=== PATIENT | female | born 1980 | race Caucasian/White ===

== ENCOUNTER 2021-08-21 13:34 | Outpatient (CLI) | payer BC, SELFPAY ==
--- NOTE | 2021-08-21 13:59 | MR_ITS ---
WS: [email or web address] MRI LUMBAR SPINE NONCONTRAST TECHNIQUE: Sagittal T1, T2 and STIR imaging. Axial T1 and T2 imaging. CLINICAL INFORMATION: SCIATICA, RIGHT COMPARISON: None. FINDINGS: Mild lumbar curve. No acute compression. No high-grade central canal stenosis. Endplate degenerative changes L4-5 with mild disc space narrowing L1-L2: No significant disc bulging. Mild facet arthropathy. Spinal canal and foramen are patent. L2-L3: Minimal annular bulging. Mild facet arthropathy. Spinal canal and foramen are patent. L3-L4: No significant disc bulging. Moderate facet arthropathy. Tiny left foraminal protrusion with m ild left foraminal narrowing. Right foramen is patent. L4-L5: Shallow central disc bulging with slight impingement traversing L5 nerve roots bilaterally. Mi ld central canal stenosis. Moderate facet arthropathy. Small right foraminal protrusion with moderate right and no significant left foraminal narrowing. L5-S1: No significant disc bulging. Spinal canal and foramen are patent. Mild facet arthropathy. Tiny right renal cyst. Visualized pelvic bony structures: Normal. Paravertebral soft tissues: Normal. Small central protrusion thoracic spine at T8-T9. MR/MR lumbar spine wo con* [id number] IMPRESSION: 1. Mild lumbar curve. No acute compression. Disc bulging worse L4-5 with endpl ate degenerative edema. 2. Broad-based shallow disc bulging L4-5 impinges the traversing L5 nerve root s bilaterally. Mild central canal stenosis at this level. 3. Right foraminal protrusion L4-5 with moderate right foraminal narrowing and slight impingement on the exiting right L4 nerve root. 4. Small left foraminal protrusion L3-4 with mild left foraminal narrowing. 5. Mild to moderate facet arthropathy worse at L3-L4 and L4-L5.
== END 2021-08-21 13:35 | disposition home or self-care (01) ==
PROVIDERS: PCP Family Medicine; Visit Provider Family Medicine
DX: M54.31 Sciatica, right side (principal); M47.816 Spondylosis without myelopathy or radiculopathy, lumbar region; M51.26 Other intervertebral disc displacement, lumbar region
CPT/HCPCS: 72148

== ENCOUNTER 2022-04-16 14:40 | Outpatient (CLI) | payer BC, SELFPAY ==
--- NOTE | 2022-04-16 15:01 | XR_ITS ---
WS: [email or web address] XR knee LT 1-2V [id number] REASON FOR EXAM: BILATERAL KNEE OSTEOARTHRITIS FINDINGS: Medial and lateral knee joint spaces are relatively well-preserved. No significant subchondral bony a bnormality. Mild narrowing of the patellofemoral joint space with subchondral sclerosis and small osteophytic spu rring of the articular patella. No soft tissue abnormality. XR/XR knee LT 1-2V [id number] IMPRESSION: Mild osteoarthritis of the patellofemoral joint.
--- NOTE | 2022-04-16 15:01 | XR_ITS ---
WS: [email or web address] XR knee RT 1-2V [id number] REASON FOR EXAM: BILATERAL KNEES OSTEOARTHRITIS FINDINGS: No fracture or focal bone lesion. Medial and lateral knee joint spaces are relatively well-preserved. No significant subchondral bone a bnormality. There is mild narrowing of the patellofemoral joint space with mild subchondral sclerosis and small o steophytes of the articular patella. No soft tissue abnormality. XR/XR knee RT 1-2V [id number] IMPRESSION: Mild osteoarthritis involving the patellofemoral joint space.
== END 2022-04-16 14:41 | disposition home or self-care (01) ==
PROVIDERS: PCP Family Medicine; Visit Provider Family Medicine
DX: M17.2 Bilateral post-traumatic osteoarthritis of knee (principal)
CPT/HCPCS: 73560

== ENCOUNTER 2022-09-03 14:23 | Outpatient (CLI) | payer BC, SELFPAY ==
--- NOTE | 2022-09-03 14:30 | MR_ITS ---
WS: [email or web address] MRI LUMBAR SPINE NONCONTRAST TECHNIQUE: Sagittal T1, T2 and STIR imaging. Axial T1 and T2 imaging. CLINICAL INFORMATION: worsening sciatica COMPARISON: MRI August 21, 2021 FINDINGS: Mild lumbar curve. No acute compression. No high-grade central canal stenosis. Disc bulging worse L4- L5 with degenerative endplate edema. This is similar in appearance to August 21, 2021. Small disc p rotrusions in the cervical spine supervisor instrument maintenance imaging at C3-C4 and C4-C5. Indentation on cervical cord at C4 -C5 with mild to moderate central canal stenosis. Prior cervical spine fusion lower cervical spine. T iny central protrusion of the thoracic spine supervisor instrument maintenance imaging at T7-T8. L1-L2: Mild annular bulging. Mild facet arthropathy. Spinal canal and foramen are patent. L2-L3: No significant disc bulging. Mild facet arthropathy. Spinal canal and foramen are patent. L3-L4: No significant disc bulging. Mild facet arthropathy. Tiny shallow LEFT foraminal protrusion. L4-L5: Shallow central disc protrusion. Slight impingement traversing L5 nerve roots bilaterally. Thi s is slightly worse in the LEFT. Mild facet arthropathy. Small RIGHT foraminal protrusion with mild R IGHT and mild LEFT foraminal narrowing. L5-S1: No significant disc bulging. Mild facet arthropathy. Spinal canal and foramen are patent. Nabothian cyst in the cervix. Visualized pelvic bony structures: Normal. Paravertebral soft tissues: Normal. MR/MR lumbar spine wo con* [id number] IMPRESSION: 1. Mild lumbar curve. No acute compression. No high-grade central canal stenos is. 2. Broad-based central disc protrusion L4-L5 with slight impingement traversin g L5 nerve roots bilaterally LEFT greater than RIGHT. This is stable compared t o August 21, 2021. 3. Small RIGHT foraminal protrusion L4-L5 with mild RIGHT foraminal narrowing. Mild LEFT L4-L5 foraminal narrowing. 4. Mild facet arthropathy L3-L4 and L4-L5. 5. Tiny shallow LEFT foraminal protrusion with mild LEFT L3-L4 foraminal narro wing unchanged. 6. Small central protrusions cervical spine supervisor instrument maintenance imaging at C3-C4 and C4-C5 w ith mild to moderate central canal stenosis at C4-C5. This can be further evalu ated with cervical spine MRI. 7. Overall no significant changes compared to previous.
--- NOTE | 2022-09-03 15:15 | MR_ITS ---
WS: [email or web address] MRI CERVICAL SPINE NONCONTRAST TECHNIQUE: Sagittal T1, T2 and STIR imaging. Axial T2, gradient, and fiesta imaging. CLINICAL INFORMATION: worsening neck pain COMPARISON: MRI 2017 FINDINGS: Straightening of the normal cervical lordosis. Prior postoperative changes ACDF C5-C7. Disc bulging w orse at C3-C4 and C4-C5. C2-C3: Normal C3-C4: Mild disc bulging with slight effacement of ventral thecal sac. Mild central canal stenosis. M ild RIGHT and no LEFT foraminal narrowing. Mild facet arthropathy. C4-C5: Disc osteophyte complex with endplate ridging. Moderate central canal stenosis. Slight indenta tion on cervical cord with myelomalacia in the cervical cord. Moderate LEFT greater than RIGHT bony f oraminal narrowing. Mild facet arthropathy. C5-C6: Postoperative changes ACDF. Mild facet arthropathy. Spinal canal and foramen are patent. C6-C7: Postoperative changes ACDF. Spinal canal and foramen are patent. C7-T1: Normal. Visualized brain stem structures: Normal. Prevertebral soft tissues: Normal. MR/MR cervical spin wo con* [id number] IMPRESSION: 1. Straightening of the normal cervical lordosis. 2. Prior postoperative changes C5-C7 ACDF. 3. Disc bulging worse at C3-C4 and C4-C5 with mild central canal stenosis at C 3-C4 and moderate central canal stenosis C4-C5. Slight indentation on cervical cord with myelomalacia. 4. Moderate LEFT greater than RIGHT bony foraminal narrowing. 5. Mild facet arthropathy C4-C5.
== END 2022-09-03 14:24 | disposition home or self-care (01) ==
LOC: RAD 14:25
PROVIDERS: PCP Family Medicine; Visit Provider Family Medicine
DX: M50.21 Other cervical disc displacement, high cervical region; M47.812 Spondylosis without myelopathy or radiculopathy, cervical region; M51.26 Other intervertebral disc displacement, lumbar region
CPT/HCPCS: 72141; 72148

== ENCOUNTER → 2023-03-04 15:05 | Outpatient (BNVA) | payer BC, SELFPAY | PROVIDERS: PCP Family Medicine; Visit Provider Family Medicine | DX: M51.9 Unspecified thoracic, thoracolumbar and lumbosacral intervertebral disc disorder (principal); M54.2 Cervicalgia; M54.30 Sciatica, unspecified side; R41.3 Other amnesia; R53.83 Other fatigue; Z76.89 Persons encountering health services in other specified circumstances | CPT/HCPCS: 80053; 80061; 84439; 84443; 85025 ==

== ENCOUNTER → 2023-04-02 11:56 | Outpatient (BNVA) | payer BC, SELFPAY | PROVIDERS: PCP Family Medicine; Visit Provider Family Medicine | DX: R53.83 Other fatigue (principal); M50.90 Cervical disc disorder, unspecified, unspecified cervical region; M54.30 Sciatica, unspecified side; M51.9 Unspecified thoracic, thoracolumbar and lumbosacral intervertebral disc disorder | CPT/HCPCS: 85651; 86140 ==

== ENCOUNTER → 2023-05-31 15:54 | Outpatient (BNVA) | payer BC, SELFPAY | PROVIDERS: PCP Family Medicine; Visit Provider Registered Nurse Neonatal Intensive Care | DX: J02.9 Acute pharyngitis, unspecified (principal) | CPT/HCPCS: 87880 ==

== ENCOUNTER 2023-08-11 08:32 | Outpatient (CLI) | payer BC, SELFPAY ==
--- NOTE | 2023-08-11 08:44 | XR_ITS ---
WS: [email or web address] Exam: XR hip RT 2-3V wo/w pel* [id number] Date/Time of Exam: 08/11/2023 8:44 AM Reason For Exam: Right hip pain No fracture or dislocation. Mild degenerative change of the acetabular rim. Normal soft tissues. IMPRESSION: 1. Early degenerative change. No fracture or dislocation.
== END 2023-08-11 08:33 | disposition home or self-care (01) ==
PROVIDERS: PCP Family Medicine; Visit Provider Family Medicine
DX: M16.11 Unilateral primary osteoarthritis, right hip (principal); M25.561 Pain in right knee; M25.562 Pain in left knee
CPT/HCPCS: 73502

== ENCOUNTER 2023-10-10 08:36 | Outpatient (CLI) | payer BC, SELFPAY ==
--- NOTE | 2023-10-10 08:45 | MR_ITS ---
WS: [email or web address] MRI CERVICAL SPINE NONCONTRAST HISTORY: Worsening neck pain, radiculopathy of Right UE. COMPARISON: 09/03/2022 Technique: Multiplanar, multisequence noncontrast imaging of the cervical spine. Prior postoperative changes of an anterior cervical disc fusion from C5-C7. Mild straightening of the cervical lordosis. No signal abnormality noted within the cord. Craniocervical junction, C1 and C2 relationship, odontoid process and soft tissues are normal. C2-C3: Small central disc protrusion. No stenosis. C3-C4: Shallow central disc protrusion and small osteophytes. No significant stenosis. C4-C5: Annular disc bulging with osteophytic ridging. Increasing size of the LEFT paracentral and pro ximal foraminal disc osteophyte complex. Disc osteophyte complex abuts the LEFT lateral thecal sac. N ow deforming the thecal sac. There is mild central with moderate bilateral foraminal stenosis. C5-C6: Mild osteophytic ridging. No stenosis. C6-C7: Mild osteophytic ridging and facet arthritis. Very mild LEFT foraminal stenosis. C7-T1: Normal. Paraspinal soft tissue are normal. IMPRESSION: 1. Prior anterior cervical disc fusion from C5-C7. 2. Increasing disc osteophyte complex at C4-5. Disc osteophyte extends LEFT paracentral and proxima l foramina. Mild central with moderate bilateral foraminal stenosis at C4-5 due to combination of dis c and osteophyte disease. 3. Very shallow central disc protrusion at C2-3. 4. No myelomalacia identified today.
== END 2023-10-10 08:37 | disposition home or self-care (01) ==
LOC: RAD 08:37
PROVIDERS: PCP Family Medicine; Visit Provider Family Medicine
DX: M50.90 Cervical disc disorder, unspecified, unspecified cervical region (principal); M79.2 Neuralgia and neuritis, unspecified; Z98.1 Arthrodesis status
CPT/HCPCS: 72141

== ENCOUNTER 2024-03-11 13:24 | Outpatient (CLI) | payer BC, SELFPAY ==
--- NOTE | 2024-03-11 13:34 | CT_ITS ---
WS: [email or web address] CT CERVICAL SPINE TECHNIQUE: Noncontrast CT of the cervical spine with coronal and sagittal reformatted images. CLINICAL INFORMATION: CERVICALGIA COMPARISON: MRI 10/10/2023 DLP: 162.[address] scans at [facility] use at least one of these dose optimization techniques: automated e xposure control; mA and/or kV adjustment per patient size (includes targeted exams where dose is matc hed to clinical indication); or iterative reconstruction. FINDINGS: Straightening of the normal cervical lordosis. Prior postoperative changes fusion C5-C7. ACDF C6-7. I nterbody fusion graft C5-6. Small nondisplaced fractures through the C7 fixation screws bilaterally. C2-C3: Normal. C3-C4: Mild facet arthropathy. Mild RIGHT foraminal narrowing. C4-C5: Disc osteophyte complex with mild central canal stenosis. Moderate to severe LEFT and moderate RIGHT bony foraminal narrowing. Mild facet arthropathy. This is similar to the prior MRI. C5-C6: Interbody fusion graft. Spinal canal is patent. Foramen are patent. Mild facet arthropathy. C6-C7: ACDF. Mild LEFT bony foraminal narrowing. Mild facet arthropathy. C7-T1: No significant disc bulging. Spinal canal and foramen are patent. Visualized posterior nasopharynx: Normal. Prevertebral soft tissues: Normal. CT/CT cervical spin wo con* [id number] IMPRESSION: 1. Straightening of the normal cervical lordosis. Prior fusion C5-C7 2. Small nondisplaced fractures through the C7 fixation screws bilaterally. 3. Mild central canal stenosis C4-5 appears stable. 4. Moderate to severe LEFT and moderate RIGHT C4-5 bony foraminal narrowing. T his appears unchanged from the prior MRI.
== END 2024-03-11 13:25 | disposition home or self-care (01) ==
PROVIDERS: PCP Family Medicine; Visit Provider Neurological Surgery
DX: M99.61 Osseous and subluxation stenosis of intervertebral foramina of cervical region (principal); M43.22 Fusion of spine, cervical region; M54.12 Radiculopathy, cervical region
CPT/HCPCS: 72125

== ENCOUNTER → 2024-10-07 12:54 | Outpatient (BNVA) | payer BC, SELFPAY | PROVIDERS: PCP Family Medicine; Visit Provider Family Medicine | DX: L70.0 Acne vulgaris (principal); E55.9 Vitamin D deficiency, unspecified; Z51.81 Encounter for therapeutic drug level monitoring; Z79.1 Long term (current) use of non-steroidal anti-inflammatories (NSAID) | CPT/HCPCS: 80053; 80061; 82306; 84443 ==

== ENCOUNTER 2025-01-04 10:02 | Outpatient (CLI) | payer BC, MEDICAID, SELFPAY ==
--- NOTE | 2025-01-04 10:15 | MR_ITS ---
WS: [email or web address] MRI CERVICAL SPINE NONCONTRAST HISTORY: RADICULOPATHY,CERVICAL REGION/CERVICALGIA, left-sided radiculopathy. Multiple prior surgeries. COMPARISON: CT 03/11/2024, MRI 10/10/2023 Technique: Multiplanar, multisequence noncontrast imaging of the cervical spine. Postoperative anterior fusion at C6-7. Interbody spacers at C5-6 and C6-7. Mild straightening of the normal cervical lordosis. There is new fluid within the C4- 5 disc with progression of narrowing. Signal within the cervical cord is normal. Visualized posterior fossa is unremarkable. Craniocervical junction, C1 and C2 relationship, odontoid process and soft tissues are normal. C2-C3: Normal. C3-C4: Diffuse annular disc bulging with osteophytic ridging. Very minimal progression since the prior study with no high-grade stenosis. C4-C5: Diffuse osteophytic ridging. Disc osteophyte complex centrally and to the LEFT has improved. Majority of stenosis related to osteophytosis. Mild central and bilateral foraminal stenosis. Mild facet arthritis. C5-C6: No stenosis. Mild facet arthritis. C6-C7: No stenosis. Mild facet arthritis. C7-T1: Mild facet arthritis. No stenosis. Paravertebral soft tissues are normal. MR/MR cervical spin wo con* [id number] IMPRESSION: 1. Prior anterior fusion at C6-7. Interbody spacers at C5-6 and C6-7. 2. No signal abnormality within the cord. 3. New fluid in the C4-5 disc with progression of degenerative disc disease. 4. Disc osteophyte complex described on the prior study has decreased at C4-5. There is still mild central and bilateral foraminal stenosis. Stenosis now is predominantly due to osteophytosis and slightly greater on the LEFT.
== END 2025-01-04 10:03 | disposition home or self-care (01) ==
PROVIDERS: PCP Family Medicine; Visit Provider Neurological Surgery
DX: M50.321 Other cervical disc degeneration at C4-C5 level (principal); M54.12 Radiculopathy, cervical region; Z98.1 Arthrodesis status; M25.78 Osteophyte, vertebrae; M48.02 Spinal stenosis, cervical region; M50.31 Other cervical disc degeneration, high cervical region; M47.892 Other spondylosis, cervical region; M47.893 Other spondylosis, cervicothoracic region
CPT/HCPCS: 72141

== ENCOUNTER 2025-09-11 14:51 | Emergency (ER) | payer BC, MEDICAID, SELFPAY ==
--- NOTE | 2025-09-11 14:52 | XRR_ITS ---
PROCEDURE INFORMATION: Exam: XR Chest Exam date and time: 09/11/2025 2:52 PM Age: 44 years old Clinical indication: Pain; Chest pressure; Additional info: Cp TECHNIQUE: Imaging protocol: Radiologic exam of the chest. Views: 1 view. COMPARISON: MR cervical spin wo con* [id number] 01/04/2025 10:24 AM FINDINGS: Lungs: Unremarkable. No consolidation. Pleural spaces: Unremarkable. No pleural effusion. No pneumothorax. Heart/Mediastinum: Unremarkable. No cardiomegaly. Bones/joints: Postsurgical changes lower cervical spine. Slight left convexity thoracic scoliosis. Upper abdomen: Unremarkable. XR/XR chest 1V portable [id number] IMPRESSION: No acute findings.
--- NOTE | 2025-09-11 14:52 | ECG_ITS ---
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 Measurements Intervals [place] Rate: 68 P: 69 DC: 144 QRS: 72 QRSD: 79 T: 56 QT: 389 QTc: 415 Interpretive Statements SINUS RHYTHM No previous ECG available for comparison Electronically Signed On 09-11-2025 16:49:54 OIL BOILER by Wilbur Albarran M.D. [id number]
--- NOTE | 2025-09-11 14:56 | ED_ITS ---
HPI - Chest Pain 2 General: Chief Complaint: Chest Pain Stated Complaint: cp Time Seen by Provider: 09/11/25 14:52 Source: patient Mode of arrival: ambulatory Limitations: no limitations History of Present Illness: 44-year-old female states she has a hist ory of migraines states she started having a migraine headache on Friday and continued to have a headache states headaches currently an 8 out of 10 feels like her previous migraines does have some photophobia and phonophobia. She denies any vomiting she states since she has been having some pressure type pain in the center of her chest. Denies any history of heart disease is a smoker. Related Data Home Medications ?Medication ?Instructions ?Recorded ?Confirmed meloxicam 15 mg tablet 15 mg PO QDAY 09/11/2509/11 Previous Rx's ?Medication ?Instructions ?Recorded fluticasone propionate 50 2 spray intranasal DAILY #16 grams 10/22/23 mcg/actuation nasal spray,suspension (Flonase Allergy Relief) albuterol sulfate 90 mcg/actuation 1 inh inhalation DIRECTED #8.5 10/07/24 aerosol inhaler grams diazepam 5 mg tablet 5 mg PO TID PRN anxiety #60 tabs 10/07/24 tretinoin microspheres 0.1 % See Rx Instructions .Rout e 10/07/24 topical gel .COMPLEX #45 grams clindamycin phosphate 1 % topical 1 applic topical BID #60 ea 10/12/24 swab Allergies Allergy/AdvReac Type Severity Reaction Status Date / Time tolterodine Allergy Mild sob Verified 09/11/25 15:03 Review of Systems 2 Card: Reports: chest pain Neuro: Reports: headache(s) [facility] ED 2 PFSH: Medical History (Updated 09/11/25 @ 15:41 by Jose E Bernal MD) Neck pain Cervical disc disease Sciatica Lumbar disc disease Family History Father CAD (coronary artery disease) Grandmother Cancer Maternal - Breast Other Stroke Denies family history of Chronic kidney disease (CKD) Lung disease Hypertension Social History Smoking and tobacco/nicotine status: current every day tobacco/nicotine user cigarettes Packs smoked per day: 0.5 Second hand smoke exposure: No Alcohol intake: never Substance/Drug Use: never Adopted: No Caregiver/support person: No Lives independently: Yes Housing: House service: No Current occupational status: unemployed Pets and animals: No Do you think of yourself as: Straight/Heterosexual Current gender identity: Female Female Reproductive History: Spontaneous abortions: No Physical Exam 2 Const: COMMON NORMALS: no acute distress, patient oriented x3 and healthy appearing HENMT: COMMON NORMALS: normocephalic and atraumatic HEAD & SCALP: n ormocephalic and atraumatic Eye: COMMON NORMALS: Equal, round and reactive pupils present and EOMs intact bilaterally PUPIL: Yes Equal, round and reactive pupils present Neck/C-Spine: COMMON NORMALS: full ROM and supple Chest: COMMONS NORMALS: normal inspection of the chest Resp: COMMON NORMALS: normal respiratory effort, No retractions, No use of accessory muscles and clear to auscultation bilaterally AUSCULTATION: clear to auscultation bilaterally Cardio: COMMON NORMALS: regular rate, regular rhythm and No murmurs present (Cardio) RATE: regular rate RHYTHM: regular rhythm GI: COMMON NORMALS: Normal to inspection, nondistended, normoactive bowel sounds present, Soft to palpation, non-tender and no masses PALPATION: Yes Soft to palpation Extremity: COMMON NORMALS: normal to inspection and full ROM Neuro: COMMON NORMALS: patient oriented x3, moves all extremities and no focal motor deficits Psych: COMMON NORMALS: mental status grossly normal, Normal thought process present and cooperative THOUGHT PROCESS: Normal thought process present Skin: COMMON NORMALS: no rashes or lesions noted and no wounds GENERAL SKIN EXAM: no rashes or lesions noted Course 2 Vital Signs: Vital signs: Vital Signs Temperature 97.7 F 09/11/25 14:58 Pulse Rate 67 09/11/25 15:33 Respiratory Rate 18 09/11/25 15:33 Blood Pressure 125/87 09/11/25 15:33 Pulse Oximetry 100 09/11/25 15:33 Oxygen Delivery Me thod Room Air 09/11/25 15:33 MDM - Chest Pain Medical Decision Making 44-year-old female presents here with headache along with chest pain. Differential includes meningitis, intracerebral hemorrhage, migraine headache, ACS, pneumonia, pulm emboli. Patient's cardiac workup here was normal chest x- ray was interpreted by me showed no acute abnormality she has no signs of pneumonia or pneumothorax. She has no shortness of breath no signs of pulm emboli her initial troponin here is negative heart score is 1 pain is been 4 days she has no signs of ACS here. Headache is likely migraine headache she has no signs of thunderclap headache it is like her similar migraines her headache here is resolved with Reglan and Benadryl. Labs showed no significant abnormality she says she is stable for discharge deal with these findings with her she is follow-up with PCP and return if worsening she understands agrees to plan. EKG interpreted by me at 1457 normal sinus rhythm heart rate [address] elevation QRS 79 QTc 406 Medical Records I reviewed the patient's medical records. Lab Data I reviewed the patient's lab results. 09/11/25 15:09 09/11/25 15:09 Radiology Impressions Chest X-Ray 09/11/25 14:52 IMPRESSION: No acute findings. Laboratory Results WBC 10.12 10^3/uL (3.29-11.43) 09/11/25 15:09 RBC 4.45 10^6/uL (3.85-5.65) 09/11/25 15:09 Hgb 14.40 g/dL (11.27-16.99) 09/11/25 15:09 Hct 42.5 % (36-47) 09/11/25 15:09 MCV 95.5 fl (85-98) 09/11/25 15:09 MCH 32.4 pg (27-33) 09/11/25 15:09 MCHC 33.9 g/dL (30-55) 09/11/25 15:09 RDW 13.1 % (12.1-15.1) 09/11/25 15:09 Plt Count 324 10^3/cmm (157-399) 09/11/25 15:09 MPV 8.9 fL (7.4-10.4) 09/11/25 15:09 Neut % (Auto) 65.7 % 09/11/25 15:09 Lymph % (Auto) 27.7 % 09/11/25 15:09 [place] % (Auto) 4.4 % 09/11/25 15:09 Eos % (Auto) 1.3 % 09/11/25 15:09 Baso % (Auto) 0.7 % 09/11/25 15:09 Neut # (Auto) 6.65 10^3/uL (1.8-7.7) 09/11/25 15:09 Lymph # (Auto) 2.8 10^3/uL (0.8-4.8) 09/11/25 15:09 [place] # (Auto) 0.5 10^3/uL (0.2-0.9) 09/11/25 15:09 Eos # (Auto) 0.1 10^3/uL (0.0-0.8) 09/11/25 15:09 Baso # (Auto) 0.1 10^3/uL (0.0-0.1) 09/11/25 15:09 Nucleated RBC % (auto) 0 % 09/11/25 15:09 Nucleated RBCs # 0.0 /100WBC 09/11/25 15:09 Sodium 140 mmol/L (136-145) 09/11/25 15:09 Potassium 3.7 mmol/L (3.5-5.1) 09/11/25 15:09 Chloride 101 mmol/L (98-107) 09/11/25 15:09 Carbon Dioxide 25 mmol/L (22-29) 09/11/25 15:09 Anion Gap 17.7 (5-19) 09/11/25 15:09 BUN 8 mg/dL (6-20) 09/11/25 15:09 Creatinine 0.6 mg/dL (0.5-0.9) 09/11/25 15:09 GFR Calculation 109.1 mL/min (90-130) 09/11/25 15:09 Glucose 87 mg/dL (65-115) 09/11/25 15:09 Calculated Osmolality 288 mOsm/kg (285-295) 09/11/25 15:09 Calcium 9.8 mg/dL (8.5-10.5) 09/11/25 15:09 Total Bilirubin 0.4 mg/dL (0.15-1.2) 09/11/25 15:09 AST 17 U/L (0-32) 09/11/25 15:09 ALT 11 U/L (0-33) 09/11/25 15:09 Alkaline Phosphatase 29 U/L (35-105) L 09/11/25 15:09 Troponin T Baseline < 6 ng/L (0-10) 09/11/25 15:09 Total Protein 7.3 g/dL (6.6-8.7) 09/11/25 15:09 Albumin 5.3 g/dL (3.5-5.2) H 09/11/25 15:09 Globulin 2.0 g/dL (1.3-4.6) 09/11/25 15:09 Lipase 40 U/L (13-60) 09/11/25 15:09 All radiology interpretation(s) finalized by discharge Discharge Plan Discharge Patient Disposition: Home Clinical Impression: Atypical chest pain, Headache Condition: Stable Prescriptions: No Action albuterol sulfate 90 mcg/actuation HFA aerosol inhaler 1 inh inhalation DIRECTED Qty: 8.5 5RF Rx Instructions: 1-2 puffs Q 4-6 hours prn diazepam 5 mg tablet 5 mg PO TID PRN (Reason: anxiety) Qty: 60 5RF tretinoin microspheres 0.1 % gel See Rx Instructions .ROUTE .COMPLEX Qty: 45 5RF Dose Instruction: APPLY TOPICALLY TO THE AFFECTED AREA DAILY Rx Instructions: APPLY TOPICALLY TO THE AFFECTED AREA DAILY meloxicam 15 mg tablet 15 mg PO QDAY fluticasone propionate [Flonase Allergy Relief] 50 mcg/actuation spray,suspension 2 spray intranasal DAILY Qty: 16 11RF Rx Instructions: administer into each nostril clindamycin phosphate 1 % swab 1 applic topical BID Qty: 60 11RF Discharge Orders: Discharge ED (Routine); Ordered 09/11/25 Ordered By: Jose E Bernal Referrals: Mono Travis DO [Primary Care Provider, [facility]] - 4-7 days Discharge Diet: Advance as tolerated Discharge Activity: Resume usual activity Patient Instructions: Chest Pain (ED), Migraine Headache (ED) Print Language: Maori Coding Level of Care Code ED Vice President Of Software Development for Chg Fwd Heart Score HEART Score Components History: Slightly Suspicous EKG: Normal Age: Less than 45 yrs Risk Factors: 1 or 2 Risk Factors Troponin: Baseline Trop <16 ng/L HEART Score RESULT HEART Score: 1
[2025-09-11 14:58] VITALS: BP 173/102; PULSE 75; RESP 18; TEMP 36.5; O2SAT 100; BMI 28.3
--- OUTSIDE RECORDS SUMMARY | 2025-09-11 15:00 | XMS_ITS | Clinical Summary ---
Author Organization [facility] Address [address] Attn: Epic Prelude ADT ISAIAH DUMONT [id number] Care Team Providers Care Executive Director Global Brand Marketing Name Role Phone Non-Staff, Physician Primary Care Provider Unava ilable Allergies No known active allergies Medications cetirizine (ZyrTEC) 10 mg tablet Take 10 mg by mouth daily. 12/17/2016 Active naltrexone-buPRO Pion 8-90 mg Tablet Sustained Release Take by mouth. 12/17/2016 Active Family History Medical History Relation Name Comments Heart Disease Father Hypertension Father Diabetes Maternal Grandfather Cancer Maternal Grandmother Diabetes Maternal Grandmother Hypertension Mother Diabetes Paternal Grandfather Heart Disease Paternal Grandfather Hypertension Paternal Grandfather Diabetes Paternal Grandmother Relation Name Status Comments Father Maternal Grandfather Maternal Grandmother Mother Paternal Grandfather Paternal Grandmother Social History Tobacco Use Types Packs/Day Years Used Date Smoking Tobacco: Never Smokeless Tobacco: Never Alcohol Use Standard Drinks/Week Comments No 0 (1 standard drink = 0.6 oz pur e alcohol) Comments Unknown Sex and Gender Information Value Date Recorded Sex Assigned at Not on file Legal Sex 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 Gender Identity Not on file Sexual Orientation Not on file Last Filed Vital Signs Vital Sign Reading Time Taken Comments Blood Pressure 146/96 12/17/2016 12:37 PM CDT Pulse 66 12/17/2016 12:37 PM CDT Temperature - - Respiratory Rate - - Oxygen Saturation - - Inhaled Oxygen Concentration - - Weight 65.8 kg (145 lb) 12/17/2016 12:37 PM CDT Height 157.5 cm (5' 2 ) 12/17/2016 12:37 PM CDT Body Mass Index 26.52 12/17/2016 12:37 PM CDT Plan of Treatment Health Maintenance Due Date Last Done Comments DTAP/TDAP/TD VACCINES (1 - Tdap) 2000 HEPATITIS B VACCINES (1 of 3 - 19+ 3-dose series) 10/30 HPV/Cotest (21-29) 2002 CERVICAL CANCER SCREENING 2011 HPV/Cotest (30-65) 2011 PAP SMEAR 2011 BREAST CANCER SCREENING 2021 INFLUENZA VACCINE (#1) 2025 HPV VACCINES (No Doses Required) Completed Care Teams Executive Director Global Brand Marketing Relationship Specialty Start Date End Date Non-Staff, Physician NO ADDRESS ON FILE PCP - General 11/30/07
--- OUTSIDE RECORDS SUMMARY | 2025-09-11 15:00 | XMS_ITS | Encounter Summary ---
Author Organization [facility] Address [address] [place] [address] Care Team Providers Care Vehicle Delivery Worker Name Role Phone Non-Staff, Physician Primary Care Provider Unava ilable Encounter Details Date Type Department Care Team (Late st Contact Info) Description 10/15/2007 Outpatient Historical [facility] [address] [place] [id number] Jaylon Stokes MD [address] 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
--- OUTSIDE RECORDS SUMMARY | 2025-09-11 15:01 | XMS_ITS | Data Portability ---
Author Organization [place] [facility] Address [address] [address] Care Team Providers Care Steam Conditioner Filling Name Role Phone MARCELLO HARRYSON Primary Care Provider Assessment Encounter Date Assessment Date Assessment LastModified by Organization Details LastModified Time 06/16/2019 06/16/2019 30 min exam and discussion, over 50% face to face counseling Not available 06/16/2019 19:15:03 07/07/2019 07/07/2019 25 min exam and discussion, over 50% face to face counseling [email or web address] Not available 07/07/2019 14:35:00 Plan of Treatment Reminders Order Date Submit Date Provider Last Modified By Organization Details Last Modified Time Details Appointments None recorded. Lab urinalysis, dipstick 2022 023 amyl In-Office Order, Internal Use Only DO Not Attach Compendium DO Not Attach Compendium, Do Not Delete/merge, [id number] 3 14:48:48 FSH (follicle-s timulating hormone), serum 2022 023 [employer] [facility], [address] [place], [address], 3 09:18:37 estradiol, serum 2022 023 [employer] [facility], [address] [place], [address], 3 09:18:38 lipid panel, serum 2022 023 JASMIN [facility], [address] [place], [address], 3 09:18:36 pap, LB + reflex HR HPV 2022 023 [email or web address] 1 [employer] [facility], [address], [place], [address], 3 10:35:54 TSH, serum or plasma 2022 023 PHELPS [facility], [facility] [place], [facility] [address], [place], [address], 3 09:18:38 CMP, serum or plasma 2022 023 PHELPS [facility], [facility] [place], [address], [place], [address], 3 09:18:36 CBC w/ diff 2022 023 5 [facility], [place], [address], 3 09:58:29 testosteron e, free + total, serum [email or web address] [place] [address], [facility] [place], [address], 1 15:32:11 vitamin D, 25-hydroxy, total, serum 2020 021 PHELPS [facility], [facility], [address], 1 17:46:06 FSH (follicle-s timulating hormone), serum 2020 021 PHELPS [facility], [address] [place], [address], 1 17:46:04 estradiol, serum 112020 PHELPS [facility], [address] [place], [address], 17:46:05 lipid panel, serum 2020 [facility], [address] [place] [address], [address], 17:46:02 CMP, serum or plasma 2020 [facility], [facility], [address], 17:46:03 TSH, serum or plasma 2020 [facility], [facility] [place], [address], 17:46:05 CBC [address] [place] [address], [address] [place] [address], [address], 15:17:27 pap, LB + reflex HR HPV 2020 [email or web address] [employer], [address] [place], [address], 1 15:32:10 test, urine 2018 019 [email or web address] Not available 9 14:35:12 pap, LB + reflex HR HPV - Ablation in 2010 019 [email or web address] [employer], [address] [place], [address], 9 10:36:56 CT + NG DNA, PCR, unspecified specimen 2018 019 [employer], [address] [place], [address], 9 18:21:49 test, urine 2018 JASMIN Not available 14:14:24 Referral None recorded. Procedures None recorded. Surgeries None recorded. Imaging US, transvagina l 2018 JASMIN Not available 9 17:09:33 US, saline infused uterus, w/ color flow 2018 [email or web address] Not available 09:55:08 Medication Orders None recorded. Patient TargetsNo targets recorded. Patient Instructions Encounter Date Encounter Id Patient Instructions Last Modified By Organization Details Last Modified Time 08/22/2021 [id number] osteoporosis education amyl Not available 08/22/2021 14:32:42 self breast exam education amyl Not available 08/22/2021 14:32:41 01/14/2023 [id number] osteoporosis education amyl Not available 01/14/2023 14:48:47 self breast exam education amyl Not available 01/14/2023 14:48:48 Reason for Referral None Reported. Results Created Date Observation Date Name Description Value Unit Range Abnormal Flag Note LastModifiedBy Organization Detail LastModifiedTime 06/16/20 19 06/22/2019 pap, LB + refle x HR HPV thinprep Pap test ASC-US negati ve abnormal . -- THIN PREP PAP TEST -- COLLE CTED DATE: 06/16 SEX: F : [birth year] AGE: 38 C2019 -6335 1 CLINI C ID: [id number] SS: PHYSI JUANY: MANDIE DE [facility] CTED BY: . Atypi denise Squam ous Cells : --Of Undet billy Encarnacioni brianna stanton (ASC- [place]) . . Addit ional Findi ngs: Endoc ervic al Mater ial Prese nt . Speci men Adequ acy: Satis facto ry for Evalu ation . 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 . Perfo rmed by: KODAK Orozco (ASCP ) Revie wed by: Sheldon waite MD (Elec troni c Signa ture 2018 14:41 ) . . High risk HPV DNA testi ng has been refle xed per stand ing order and those resul ts will follo w in a separ ate repor t. . . [facility] , [address] , [place] [address] , CLIA# [id number] Medic al Direc tor: James [address], DO Not Available [facility] [address] [place], [address], 06/23/2019 18:21:49 06/16/20 19 06/16/2019 CT + NG DNA, PCR, unspe cifie d speci men gonorrhea, amplified NEGATI VE negati ve normal Not Available [facility] [address] [place], [address], 06/23/2019 18:21:49 06/16/20 19 06/21/2019 CT + NG DNA, PCR, unspe cifie d speci men chlamydia, amplified NEGATI VE negati ve normal . DNA Test Resul ts MILVIA CTED DATE: 06/16 SEX: F : [birth year] AGE: 38 [id number] CLINI C ID: [id number] SS: PHYSI JUANY: MANDIE DE COLLE CTED BY: [id number] Speci men Sourc e: Cervi x / Endoc ervix Speci men Type: ThinP rep PAP Corre latin g Pap: C2019 -1425 1 . Neiss eria gonor rhoea e: NEGAT TRIP Vera l Value : Negat trip . Chlam ydia trach omati s: NEGAT TRIP Vera l Value : Negat trip . [facility] , [address] [place] [address] CLIA# [id number] Medic al Direc tor: James [address], DO Not Available [facility] [address] [place], [place], [address], 06/23/2019 18:21:49 06/16/20 19 06/23/2019 HPV DNA, high- risk HPV high risk NEGATI VE negati ve normal . HPV High Risk DNA Probe Assay COLLE CTED DATE: 06/16 SEX: F : [birth year]/12 AGE: 38 M2019 -8754 5 CLINI C ID: [id number] SS: PHYSI JUANY: MANDIE DE CTED BY: Speci men Sourc e: Cervi x / Endoc ervix Speci men Type: Non Image d ThinP rep Corre latin g Pap Resul t: ASC-U S ([id number]) . Addit ional High Risk Subty pes* NEGAT TRIP * Inclu adelina 31,33 ,35,3 9,45, 51,52 ,56,5 8,59, 66,68 Subty pe 16 NEGAT TRIP Subty pe 18 NEGAT TRIP . [facility] , [address] , [place] [address] , CLIA# [id number] Medic al Direc tor: James [address]anova [address], DO Not Available [facility] [address] [place], [address], 06/23/2019 18:21:50 07/07/20 19 07/07/2019 pregn johanna test, urine Result negati ve Not Available [facility] [address] [facility] [address], [place], [address], 07/07/2019 14:35:03 08/22/20 21 08/27/2021 LIPID PANEL , STAND RON cholesterol, total 146 mg/dL <200 normal Not Available [address] [address] [place], [address], 08/27/2021 17:46:02 08/22/20 21 08/27/2021 LIPID PANEL , STAND RON HDL cholesterol 59 mg/dL > or = 50 normal Not Available [facility] [address] [address] [place], [address], 08/27/2021 17:46:02 08/22/20 21 08/27/2021 LIPID PANEL , STAND RON triglyceride s 55 mg/dL <150 normal Not Available [address] [address] [place], [address], 08/27/2021 17:46:02 08/22/20 21 08/27/2021 LIPID PANEL , STAND RON LDL-choleste rol 73 mg/dL _(denise c) normal Refer ence range : <100 Eric able range <100 mg/dL for prima ry preve ntion ; <70 mg/dL for patie nts with CHD or diabe tic patie nts with > or = 2 CHD risk facto rs. LDL-C is now calcu lated using the Estefanía n-Hop kins calcu laterlin n, which is a valid ated novel metho d joana mast r accur acy than the Fried la equat ion in the estim ation of LDL-C . Estefanía n SS et al. JANINE. 2013; 310(1 9): 2061- 2068 (http ://ed ucati on.Qu Beverly slade SimplyInsureds. com/f aq/FA Q164) Not Available [facility] [address] [address] [place], [address], 08/27/2021 17:46:02 08/22/20 21 08/27/2021 LIPID PANEL , STAND RON chol/HDLC ratio 2.5 (calc ) <5.0 normal Not Available [facility] [address] [address] [address], [place], [address], 08/27/2021 17:46:02 08/22/2008/27/2021 LIPID PANEL , STAND RON non HDL cholesterol 87 mg/dL _(denise c) <130 normal For patie nts with diabe carlos plus 1 major ASCVD risk facto r, treat ing to a non-H DL-C goal of <100 mg/dL (LDL- C of <70 mg/dL ) is consi dered a thera peuti c optio n. Not Available [facility] [address] [address] [place], [address], 08/27/2021 17:46:02 08/22/20 21 08/27/2021 TESTO STERO NE, FREE testosterone , free 1.4 pg/mL 0.2-5. 0 This test was devel oped and its jatin tical perfo rmanc e hill cteri stics have been deter mined by [facility]. It has not been clear ed or appro sofiya by the FDA. This assay has been valid ated pursu ant to the CLIA regul ation s and is used for clini denise purpo ses. Not Available [employer] [place] [address] [place], [address], 08/27/2021 17:46:03 08/22/20 21 08/27/2021 COMPR EHENS TRIP METAB OLIC PANEL glucose 85 mg/dL 65-99 normal Fasti ng refer ence inter erick Not Available [address], [address], 08/27/2021 17:46:03 08/22/20 21 08/27/2021 COMPR EHENS TRIP METAB OLIC PANEL urea nitrogen (BUN) 7 mg/dL 7-25 normal Not Available [address], [address], 08/27/2021 17:46:03 08/22/20 21 08/27/2021 COMPR EHENS TRIP METAB OLIC PANEL creatinine 0.77 mg/dL 0.50-1 .10 normal Not Available [address], [address], 08/27/2021 17:46:03 08/22/20 21 08/27/2021 COMPR EHENS TRIP METAB OLIC PANEL eGFR non-afr. macanese 97 mL/mi n/1.7 3m2 > or = 60 normal Not Available [address], [address], 08/27/2021 17:46:03 08/22/20 21 08/27/2021 COMPR EHENS TRIP METAB OLIC PANEL eGFR 113 mL/mi n/1.7 3m2 > or = 60 normal Not Available [address], [address], 08/27/2021 17:46:03 08/22/20 21 08/27/2021 COMPR EHENS TRIP METAB OLIC PANEL BUN/creatini ne ratio NOT APPLIC ABLE (calc ) 6-22 Not Available [address], [address], 08/27/2021 17:46:03 08/22/20 21 08/27/2021 COMPR EHENS TRIP METAB OLIC PANEL sodium 140 mmol/ L 135-14 6 normal Not Available [address], [address], 08/27/2021 17:46:03 08/22/20 21 08/27/2021 COMPR EHENS TRIP METAB OLIC PANEL potassium 3.7 mmol/ L 3.5-5. 3 normal Not Available [address], [address], 08/27/2021 17:46:03 08/22/20 21 08/27/2021 COMPR EHENS TRIP METAB OLIC PANEL chloride 106 mmol/ L 98-110 normal Not Available [address], [address], 08/27/2021 17:46:03 08/22/20 21 08/27/2021 COMPR EHENS TRIP METAB OLIC PANEL carbon dioxide 24 mmol/ L 20-32 normal Not Available [address], [address], 08/27/2021 17:46:03 08/22/20 21 08/27/2021 COMPR EHENS TRIP METAB OLIC PANEL calcium 9.3 mg/dL 8.6-10 .2 normal Not Available [address], [address], 08/27/2021 17:46:03 08/22/20 21 08/27/2021 COMPR EHENS TRIP METAB OLIC PANEL protein, total 6.3 g/dL 6.1-8. 1 normal Not Available [address], [address], 08/27/2021 17:46:03 08/22/20 21 08/27/2021 COMPR EHENS TRIP METAB OLIC PANEL albumin 4.4 g/dL 3.6-5. 1 normal Not Available [address], [address], 08/27/2021 17:46:03 08/22/20 21 08/27/2021 COMPR EHENS TRIP METAB OLIC PANEL globulin 1.9 g/dL_ (calc ) 1.9-3. 7 normal Not Available [address], [address], 08/27/2021 17:46:03 08/22/20 21 08/27/2021 COMPR EHENS TRIP METAB OLIC PANEL albumin/glob ulin ratio 2.3 (calc ) 1.0-2. 5 normal Not Available [address], [address], 08/27/2021 17:46:03 08/22/20 21 08/27/2021 COMPR EHENS TRIP METAB OLIC PANEL bilirubin, total 0.4 mg/dL 0.2-1. 2 normal Not Available [address], [address], 08/27/2021 17:46:03 08/22/20 21 08/27/2021 COMPR EHENS TRIP METAB OLIC PANEL alkaline phosphatase 20 U/L 31-125 low Not Available [address], [address], 08/27/2021 17:46:03 08/22/20 21 08/27/2021 COMPR EHENS TRIP METAB OLIC PANEL AST 13 U/L 10-30 normal Not Available [address], [address], 08/27/2021 17:46:03 08/22/20 21 08/27/2021 COMPR EHENS TRIP METAB OLIC PANEL ALT 11 U/L 6-29 normal Not Available [address], [address], 08/27/2021 17:46:03 08/22/20 21 08/27/2021 CBC (INCL UDES DIFF/ PLT) white blood cell count 7.0 thous and/u L 3.8-10 .8 normal Not Available [address], [address], 08/27/2021 17:46:04 08/22/20 21 08/27/2021 CBC (INCL UDES DIFF/ PLT) red blood cell count 4.53 eliza on/uL 3.80-5 .10 normal Not Available [address], [address], 08/27/2021 17:46:04 08/22/20 21 08/27/2021 CBC (INCL UDES DIFF/ PLT) hemoglobin 14.3 g/dL 11.7-1 5.5 normal Not Available [address], [address], 08/27/2021 17:46:04 08/22/20 21 08/27/2021 CBC (INCL UDES DIFF/ PLT) hematocrit 43.2 % 35.0-4 5.0 normal Not Available [address], [address], 08/27/2021 17:46:04 08/22/20 21 08/27/2021 CBC (INCL UDES DIFF/ PLT) MCV 95.4 fL 80.0-1 00.0 normal Not Available [address], [address], 08/27/2021 17:46:04 08/22/20 21 08/27/2021 CBC (INCL UDES DIFF/ PLT) MCH 31.6 pg 27.0-3 3.0 normal Not Available [address], [address], 08/27/2021 17:46:04 08/22/20 21 08/27/2021 CBC (INCL UDES DIFF/ PLT) MCHC 33.1 g/dL 32.0-3 6.0 normal Not Available [address], [address], 08/27/2021 17:46:04 08/22/20 21 08/27/2021 CBC (INCL UDES DIFF/ PLT) RDW 12.0 % 11.0-1 5.0 normal Not Available [address], [address], 08/27/2021 17:46:04 08/22/20 21 08/27/2021 CBC (INCL UDES DIFF/ PLT) platelet count 279 thous and/u L 140-40 0 normal Not Available [address], [address], 08/27/2021 17:46:04 08/22/20 21 08/27/2021 CBC (INCL UDES DIFF/ PLT) MPV 9.8 fL 7.5-12 .5 normal Not Available [address], [address], 08/27/2021 17:46:04 08/22/20 21 08/27/2021 CBC (INCL UDES DIFF/ PLT) absolute neutrophils 3927 cells /uL 1500-7 800 normal Not Available [address], [address], 08/27/2021 17:46:04 08/22/20 21 08/27/2021 CBC (INCL UDES DIFF/ PLT) absolute lymphocytes 2597 cells /uL 850-39 00 normal Not Available [address], [address], 08/27/2021 17:46:04 08/22/20 21 08/27/2021 CBC (INCL UDES DIFF/ PLT) absolute monocytes 350 cells /uL 200-95 0 normal Not Available [address], [address], 08/27/2021 17:46:04 08/22/20 21 08/27/2021 CBC (INCL UDES DIFF/ PLT) absolute eosinophils 63 cells /uL 15-500 normal Not Available [address], [address], 08/27/2021 17:46:04 08/22/20 21 08/27/2021 CBC (INCL UDES DIFF/ PLT) absolute basophils 63 cells /uL 0-200 normal Not Available [address], [address], 08/27/2021 17:46:04 08/22/20 21 08/27/2021 CBC (INCL UDES DIFF/ PLT) neutrophils 56.1 % normal Not Available [address], [address], 08/27/2021 17:46:04 08/22/20 21 08/27/2021 CBC (INCL UDES DIFF/ PLT) lymphocytes 37.1 % normal Not Available [address], [address], 08/27/2021 17:46:04 08/22/20 21 08/27/2021 CBC (INCL UDES DIFF/ PLT) monocytes 5.0 % normal Not Available [address], [address], 08/27/2021 17:46:04 08/22/20 21 08/27/2021 CBC (INCL UDES DIFF/ PLT) eosinophils 0.9 % normal Not Available [address], [address], 08/27/2021 17:46:04 08/22/20 21 08/27/2021 CBC (INCL UDES DIFF/ PLT) basophils 0.9 % normal Not Available [address], [address], 08/27/2021 17:46:04 08/22/20 21 08/27/2021 FSH FSH 10.5 mIU/m L normal Refer ence Range Folli cular Phase 2.5-1 0.2 Mid-c ycle Peak 3.1-1 7.7 Lutea l Phase 1.5- 9.1 Postm enopa usal 23.0- 116.3 Not Available [employer] [facility] [address] [place], [address], 08/27/2021 17:46:04 08/22/20 21 08/27/2021 ESTRA DIOL estradiol 114 pg/mL normal Refer ence Range Folli cular Phase : 19-14 4 Mid-C ycle: 64-35 7 Lutea l Phase : 56-21 4 Postm enopa usal: < or = 31 Refer ence range estab lishe d on post- puber ruth patie nt popul ation . No pre-p ubert al refer ence range estab lishe d using this assay . For any patie nts for whom low Estra diol level s are antic ipate d (e.g. males , pre-p ubert al child manuel and hypog onada l/pos t-men opaus al femal es), the [facility] ls Insti tute Estra diol, Ultra sensi tive, LCMSM S assay is recom christiano d (orde r code 23713 ). Pleas e note: patie nts being treat ed with the drug fulve stran t (Fasl odex( R)) have demon strat ed signi fican t inter feren ce in immun oassa y metho ds for estra diol measu remen t. The cross react ivity could lead to false ly eleva elton estra diol test resul ts leadi ng to an inapp ropri ate clini denise asses sment of estro gen statu s. [facility] order code [id number] -Estr adiol , Ultra sensi tive LC/MS /MS demon strat es negli gible cross react ivity with fulve stran t. Not Available [employer] [facility] [address] [place], [address], 08/27/2021 17:46:05 08/22/20 21 08/27/2021 TSH W/REF SERGO TO FT4 TSH w/reflex to FT4 1.49 mIU/L normal Refer ence Range > or = 20 Years 0.40- 4.50 Pregn johanna Range s First trime ster 0.26- 2.66 Secon d trime ster 0.55- 2.73 Third trime ster 0.43- 2.91 Not Available [facility] [address] [place] [address], [address], 08/27/2021 17:46:05 08/22/20 21 08/27/2021 VITAM IN D,25- OH,TO RUTH,I A vitamin D,25-oh,tota l,ia 26 NG/mL 30-100 low Vitam in D Statu s 25-OH Vitam in D: Defic iency : <20 ng/mL Insuf ficie ncy: 20 - 29 ng/mL Optim al: > or = 30 ng/mL For 25-OH Vitam in D testi ng on patie nts on D2-nuñez pplem entat ion and patie nts for whom quant itati on of D2 and D3 fract ions is requi red, the [facility](TM ) 25-OH VIT D, (D2,D 3), LC/MS /MS is recom christiano d: order code [id number] (meredith ents >2yrs ). See Note 1 Note 1 For addit ional infor carleen brennan e refer to http: //kyaw waite.Galileo stDia gnost ics.c om/fa q/FAQ 199 (This link is being provi ded for infor matio nal/ educa rohan l purpo ses only. ) Not Available [employer] [facility] [address] [place], [address], 08/27/2021 17:46:06 08/22/20 21 08/27/2021 TESTO STERO NE, TOTAL , MS testosterone , total, MS 17 NG/dL 2-45 For addit ional infor carleen brennan e refer to http: //kyaw waite.galileo stdia gnost ics.c om/fa q/Tot alTes екатерина Berry [facility] (This link is being provi ded for infor matio nal/ educa rohan l purpo ses only. ) This test was devel oped and its jatin tical perfo rmanc e hill cteri stics have been deter mined by [facility]. It has not been clear ed or appro sofiya by the FDA. This assay has been valid ated pursu ant to the CLIA regul ation s and is used for clini denise purpo ses. Not Available [facility] [address], [place], [address], 08/27/2021 17:46:06 08/22/20 21 08/30/2021 THINP REP PAP TEST thinprep Pap test NEGATI VE/ YEAST PRESEN T negati ve abnormal . -- THIN PREP PAP TEST -- COLLE CTED DATE: 08/22 SEX: F : [birth year] AGE: 40 C2021 -4339 3 CLINI C ID: [id number] SS: PHYSI JUANY: [facility] COLLE CTED BY: . Negat trip for Intra epith elial Leserlin n or Angel levine . . Addit ional Findi ngs: Endoc ervic al Mater ial Prese nt Yeast Prese nt . Speci men Adequ acy: Satis facto ry for Evalu ation . Previ ous Histo ry: May 2019 ASCUS HPV(N eg) . Clini denise Note: Hx: ASCUS 06-18, Prev Pap Abnor mal 06-18, LMP Ablat ion 2011 Speci men Sourc e: Cervi x Visit Type: Routi ne . . Perfo rmed by: Randal espinoza CT (ASCP ) Revie wed by: KODKA Villagomez (ASCP ) (Elec troni c Signa ture 2020 00:01 ) . [facility] , [address] , [place] [address] , CLIA# [id number] Medic al Direc tor: James [address], DO Not Available [facility] [address] [place], [address], 08/30/2021 01:09:45 01/15/20 23 01/15/2023 LIPID PANEL , STAND RON cholesterol, total 143 mg/dL <200 normal Not Available [address] [address] [place], [address], 01/15/2023 09:18:36 01/15/20 23 01/15/2023 LIPID PANEL , STAND RON HDL cholesterol 58 mg/dL > or = 50 normal Not Available [facility] [address] [address] [place], [address], 01/15/2023 09:18:36 01/15/20 23 01/15/2023 LIPID PANEL , STAND RON triglyceride s 56 mg/dL <150 normal Not Available [facility] [address], [address], 01/15/2023 09:18:36 01/15/20 23 01/15/2023 LIPID PANEL , STAND RON LDL-choleste rol 71 mg/dL _(denise c) normal Refer ence range : <100 Eric able range <100 mg/dL for prima ry preve ntion ; <70 mg/dL for patie nts with CHD or diabe tic patie nts with > or = 2 CHD risk facto rs. LDL-C is now calcu lated using the Estefanía n-Hop kins dolores bahena n, which is a valid ated novel nikia mast r accur acy than the Fried la equat ion in the estim ation of LDL-C . Estefanía waite SS et al. JANINE. 2013; 310(1 9): 2061- 2068 (http ://ed ucati on.Qu estDi ferminos tics. com/f aq/FA Q164) Not Available [address] [address] [place], [address], 01/15/2023 09:18:36 01/15/20 23 01/15/2023 LIPID PANEL , STAND RON chol/HDLC ratio 2.5 (calc ) <5.0 normal Not Available [address] [address] [place], [address], 01/15/2023 09:18:36 01/15/20 23 01/15/2023 LIPID PANEL , STAND RON non HDL cholesterol 85 mg/dL _(denise c) <130 normal For patie nts with diabe carlos plus 1 major ASCVD risk facto r, treat ing to a non-H DL-C goal of <100 mg/dL (LDL- C of <70 mg/dL ) is consi dered a thera pehermilo c optio n. Not Available [address] [address] [place], [address], 01/15/2023 09:18:36 01/15/20 23 01/15/2023 COMPR EHENS TRIP METAB OLIC PANEL glucose 87 mg/dL 65-139 normal Non-f astin g refer ence inter erick Not Available [address] [address] [place], [address], 01/15/2023 09:18:36 01/15/20 23 01/15/2023 COMPR EHENS TRIP METAB OLIC PANEL urea nitrogen (BUN) 6 mg/dL 7-25 low Not Available [address] [address] [place], [address], 01/15/2023 09:18:36 01/15/20 23 01/15/2023 COMPR EHENS TRIP METAB OLIC PANEL creatinine 0.67 mg/dL 0.50-0 .99 normal Not Available [address] [address] [place], [address], 01/15/2023 09:18:36 01/15/20 23 01/15/2023 COMPR EHENS TRIP METAB OLIC PANEL eGFR 113 mL/mi n/1.7 3m2 > or = 60 normal The eGFR is based on the CKD-E PI 2020 equat ion. To calcu late the new eGFR from a previ ous Creat inine or Cysta tin C resul t, go to https ://swetha vásquez.honorio disla.o yandel/mireya almanzaal s/ kdoqi /gfr% 5Fcal culat or Not Available [address] [address] [place], [address], 01/15/2023 09:18:36 01/15/2001/15/2023 COMPR EHENS TRIP METAB OLIC PANEL BUN/creatini ne ratio 9 (calc ) 6-22 normal Not Available [address], [address], 01/15/2023 09:18:36 01/15/20 23 01/15/2023 COMPR EHENS TRIP METAB OLIC PANEL sodium 141 mmol/ L 135-14 6 normal Not Available [address], [address], 01/15/2023 09:18:36 01/15/20 23 01/15/2023 COMPR EHENS TRIP METAB OLIC PANEL potassium 4.0 mmol/ L 3.5-5. 3 normal Not Available [address] [address] [place], [address], 01/15/2023 09:18:36 01/15/20 23 01/15/2023 COMPR EHENS TRIP METAB OLIC PANEL chloride 104 mmol/ L 98-110 normal Not Available [address], [address], 01/15/2023 09:18:36 01/15/20 23 01/15/2023 COMPR EHENS TRIP METAB OLIC PANEL carbon dioxide 28 mmol/ L 20-32 normal Not Available [address], [address], 01/15/2023 09:18:36 01/15/20 23 01/15/2023 COMPR EHENS TRIP METAB OLIC PANEL calcium 9.3 mg/dL 8.6-10 .2 normal Not Available [address], [address], 01/15/2023 09:18:36 01/15/20 23 01/15/2023 COMPR EHENS TRIP METAB OLIC PANEL protein, total 6.2 g/dL 6.1-8. 1 normal Not Available [address], [address], 01/15/2023 09:18:36 01/15/20 23 01/15/2023 COMPR EHENS TRIP METAB OLIC PANEL albumin 4.4 g/dL 3.6-5. 1 normal Not Available [address], [address], 01/15/2023 09:18:36 01/15/20 23 01/15/2023 COMPR EHENS TRIP METAB OLIC PANEL globulin 1.8 g/dL_ (calc ) 1.9-3. 7 low Not Available [address], [address], 01/15/2023 09:18:36 01/15/20 23 01/15/2023 COMPR EHENS TRIP METAB OLIC PANEL albumin/glob ulin ratio 2.4 (calc ) 1.0-2. 5 normal Not Available [address], [address], 01/15/2023 09:18:36 01/15/20 23 01/15/2023 COMPR EHENS TRIP METAB OLIC PANEL bilirubin, total 0.3 mg/dL 0.2-1. 2 normal Not Available [address], [address], 01/15/2023 09:18:36 01/15/20 23 01/15/2023 COMPR EHENS TRIP METAB OLIC PANEL alkaline phosphatase 22 U/L 31-125 low Not Available [facility] [address], [address], 01/15/2023 09:18:36 01/15/20 23 01/15/2023 COMPR EHENS TRIP METAB OLIC PANEL AST 11 U/L 10-30 normal Not Available [address], [address], 01/15/2023 09:18:36 01/15/20 23 01/15/2023 COMPR EHENS TRIP METAB OLIC PANEL ALT 8 U/L 6-29 normal Not Available [address], [address], 01/15/2023 09:18:36 01/15/20 23 01/15/2023 CBC (INCL UDES DIFF/ PLT) white blood cell count 7.4 thous and/u L 3.8-10 .8 normal Not Available [address], [address], 01/15/2023 09:18:37 01/15/20 23 01/15/2023 CBC (INCL UDES DIFF/ PLT) red blood cell count 4.41 eliza on/uL 3.80-5 .10 normal Not Available [address], [address], 01/15/2023 09:18:37 01/15/20 23 01/15/2023 CBC (INCL UDES DIFF/ PLT) hemoglobin 14.4 g/dL 11.7-1 5.5 normal Not Available [address], [address], 01/15/2023 09:18:37 01/15/20 23 01/15/2023 CBC (INCL UDES DIFF/ PLT) hematocrit 43.7 % 35.0-4 5.0 normal Not Available [address], [address], 01/15/2023 09:18:37 01/15/20 23 01/15/2023 CBC (INCL UDES DIFF/ PLT) MCV 99.1 fL 80.0-1 00.0 normal Not Available [address], [address], 01/15/2023 09:18:37 01/15/20 23 01/15/2023 CBC (INCL UDES DIFF/ PLT) MCH 32.7 pg 27.0-3 3.0 normal Not Available [address], [address], 01/15/2023 09:18:37 01/15/20 23 01/15/2023 CBC (INCL UDES DIFF/ PLT) MCHC 33.0 g/dL 32.0-3 6.0 normal Not Available [address], [address], 01/15/2023 09:18:37 01/15/20 23 01/15/2023 CBC (INCL UDES DIFF/ PLT) RDW 13.0 % 11.0-1 5.0 normal Not Available [address], [address], 01/15/2023 09:18:37 01/15/20 23 01/15/2023 CBC (INCL UDES DIFF/ PLT) platelet count 332 thous and/u L 140-40 0 normal Not Available [address], [address], 01/15/2023 09:18:37 01/15/20 23 01/15/2023 CBC (INCL UDES DIFF/ PLT) MPV 9.1 fL 7.5-12 .5 normal Not Available [address], [address], 01/15/2023 09:18:37 01/15/20 23 01/15/2023 CBC (INCL UDES DIFF/ PLT) absolute neutrophils 4928 cells /uL 1500-7 800 normal Not Available [address], [address], 01/15/2023 09:18:37 01/15/20 23 01/15/2023 CBC (INCL UDES DIFF/ PLT) absolute lymphocytes 1939 cells /uL 850-39 00 normal Not Available [address], [address], 01/15/2023 09:18:37 01/15/20 23 01/15/2023 CBC (INCL UDES DIFF/ PLT) absolute monocytes 370 cells /uL 200-95 0 normal Not Available [address], [address], 01/15/2023 09:18:37 01/15/20 23 01/15/2023 CBC (INCL UDES DIFF/ PLT) absolute eosinophils 104 cells /uL 15-500 normal Not Available [address], [address], 01/15/2023 09:18:37 01/15/20 23 01/15/2023 CBC (INCL UDES DIFF/ PLT) absolute basophils 59 cells /uL 0-200 normal Not Available [address], [address], 01/15/2023 09:18:37 01/15/20 23 01/15/2023 CBC (INCL UDES DIFF/ PLT) neutrophils 66.6 % normal Not Available [address], [address], 01/15/2023 09:18:37 01/15/20 23 01/15/2023 CBC (INCL UDES DIFF/ PLT) lymphocytes 26.2 % normal Not Available [address] [place], [address], 01/15/2023 09:18:37 01/15/20 23 01/15/2023 CBC (INCL UDES DIFF/ PLT) monocytes 5.0 % normal Not Available [address], [address], 01/15/2023 09:18:37 01/15/2001/15/2023 CBC (INCL UDES DIFF/ PLT) eosinophils 1.4 % normal Not Available [address], [address], 01/15/2023 09:18:37 01/15/2001/15/2023 CBC (INCL UDES DIFF/ PLT) basophils 0.8 % normal Not Available [address], [address], 01/15/2023 09:18:37 01/15/2001/15/2023 FSH FSH 11.1 mIU/m L normal Refer ence Range Folli cular Phase 2.5-1 0.2 Mid-c ycle Peak 3.1-1 7.7 Lutea l Phase 1.5- 9.1 Postm enopa usal 23.0- 116.3 Not Available [address], [address], 01/15/2023 09:18:37 01/15/2001/15/2023 ESTRA DIOL estradiol 298 pg/mL normal Refer ence Range Folli cular Phase : 19-14 4 Mid-C ycle: 64-35 7 Lutea l Phase : 56-21 4 Postm enopa usal: < or = 31 Refer ence range estab lishe d on post- puber ruth patie nt popul ation . No pre-p ubert al refer ence range estab lishe d using this assay . For any patie nts for whom low Estra diol level s are antic ipate d (e.g. males , pre-p ubert al child manuel and hypog onada l/pos t-men opaus al femal es), the [facility] Estra diol, Ultra sensi tive, LCMSM S assay is recom christiano nunez (orde r code [id number] ). Carleen ba note: patie nts being treat ed with the drug fulve stran t (Fasl odex( R)) have demon strat ed signi fican t inter feren ce in immun oassa y metho ds for estra diol measu remen t. The cross react ivity could lead to false ly eleva elton estra diol test resul ts leadi ng to an inapp ropri ate clini denise asses sment of estro gen statu s. [facility] order code [id number] -Estr adiol , Ultra sensi tive LC/MS /MS demon strat es negli gible cross react ivity with fulve stran t. Not Available [facility] [address] [place], [address], 01/15/2023 09:18:38 01/15/20 23 01/15/2023 TSH W/REF SERGO TO FT4 TSH w/reflex to FT4 2.93 mIU/L normal Refer ence Range > or = 20 Years 0.40- 4.50 Pregn johanna Range s First trime ster 0.26- 2.66 Secon d trime ster 0.55- 2.73 Third trime ster 0.43- 2.91 Not Available [facility] [address] [place], [address], 01/15/2023 09:18:38 01/15/20 23 01/17/2023 THINP REP PAP TEST thinprep Pap test NEGATI VE negati ve normal . -- THIN PREP PAP TEST -- [facility] GEORGESD DATE: 01/14 SEX: F : [birth year] AGE: 42 [id number] CLINI C ID: [id number] SS: PHYSI JUANY: FIDE WILLARD [facility] CTED BY: . Negat trip for Intra epith elial Lesio n or Malig abner . . Addit ional Findi ngs: Endoc ervic al Mater ial Prese nt . Speci men Adequ acy: Satis facto ry for Evalu ation . Previ ous Histo ry: Aug 2021 Negat trip May 2019 ASCUS HPV(N eg) . Clini denise Note: Spott ing w/ Wipin g, Prev Pap NEG 08-18, Abnor mal Bleed ing, LMP Ablat ion Speci men Sourc e: Cervi x / Endoc ervix Visit Type: Routi ne . . Perfo rmed by: KODAK Orozco (ASCP ) Revie wed by: Daryl Casanova rd, DO (Elec troni c Signa ture 2022 13:56 ) . [facility] , [address] , [facility] [place] [address] , CLIA# [id number] Medic al Direc tor: James Casanova rd, DO Not Available [facility] [address] [place], [address], 01/17/2023 14:58:59 01/15/2001/14/2023 GONOR SALENA/ CHLAM YDIA AMPLI FIED gonorrhea, amplified NEGATI VE negati ve normal Not Available [facility] [address] [place], [address], 01/21/2023 16:50:23 01/15/2001/21/2023 GONOR SALENA/ CHLAM YDIA AMPLI FIED chlamydia, amplified NEGATI VE negati ve normal . DNA Test Resul ts [facility] CTED DATE: 01/14 SEX: F : 11/12 AGE: 42 [id number] CLINI C ID: [id number] SS: FRAN FRYEN: FIDE WILLARD C [facility] CTED BY: [id number] Speci men Sourc e: Cervi x / Endoc ervix Speci men Type: ThinP rep PAP Corre latin g Pap Resul t: Negat trip for FIORELLA or Malig abner . Neiss eria gonor rhoea e: NEGAT TRIP Vera l Value : Negat trip . Chlam ydia trach omati s: NEGAT TRIP Vera l Value : Negat trip . [facility] , [address] , [place] [address] CLIA# [id number] Medic al Direc tor: James Casanova rd, DO Not Available [facility] [address] [place], [address], 01/21/2023 16:50:23 01/15/2001/14/2023 urina lysis , dipst ick color yellow Not Available In-Office Order Internal Use Only DO Not Attach Compendium DO Not Attach Compendium, Do Not Delete/merge, 01/14/2023 10:58:30 01/15/2001/14/2023 urina lysis , dipst ick clarity clear Not Available In-Office Order Internal Use Only DO Not Attach Compendium DO Not Attach Compendium, Do Not Delete/merge, 01/14/2023 10:58:30 01/15/2001/14/2023 urina lysis , dipst ick glucose negati ve Not Available In-Office Order Internal Use Only DO Not Attach Compendium DO Not Attach Compendium, Do Not Delete/merge, 01/14/2023 10:58:30 01/15/20 23 01/14/2023 urina lysis , dipst ick bilirubin negati ve Not Available In-Office Order Internal Use Only DO Not Attach Compendium DO Not Attach Compendium, Do Not Delete/merge, [facility] 01/14/2023 10:58:30 01/15/20 23 01/14/2023 urina lysis , dipst ick ketones negati ve Not Available In-Office Order Internal Use Only DO Not Attach Compendium DO Not Attach Compendium, Do Not Delete/merge, [facility] 01/14/2023 10:58:30 01/15/20 23 01/14/2023 urina lysis , dipst ick specific gravity 1.010 1.005 to 1.020 Not Available In-Office Order Internal Use Only DO Not Attach Compendium DO Not Attach Compendium, Do Not Delete/merge, [facility] 01/14/2023 10:58:30 01/15/20 23 01/14/2023 urina lysis , dipst ick blood negati ve Not Available In-Office Order Internal Use Only DO Not Attach Compendium DO Not Attach Compendium, Do Not Delete/merge, [id number] 01/14/2023 10:58:30 01/15/20 23 01/14/2023 urina lysis , dipst ick pH 7.5 6 to 7 Not Available In-Office Order Internal Use Only DO Not Attach Compendium DO Not Attach Compendium, Do Not Delete/merge, 01/14/2023 10:58:30 01/15/20 23 01/14/2023 urina lysis , dipst ick albumin negati ve Not Available In-Office Order Internal Use Only DO Not Attach Compendium DO Not Attach Compendium, Do Not Delete/merge, 01/14/2023 10:58:30 01/15/20 23 01/14/2023 urina lysis , dipst ick urobilinogen 0.2 Not Available In-Of fice Order Internal Use Only DO Not Attach Compendium DO Not Attach Compendium, Do Not Delete/merge, [id number] 01/14/2023 10:58:30 01/15/20 23 01/14/2023 urina lysis , dipst ick nitrites negati ve Not Available In-Office Order Internal Use Only DO Not Attach Compendium DO Not Attach Compendium, Do Not Delete/merge, [id number] 01/14/2023 10:58:30 01/15/2001/14/2023 urina lysis , dipst ick leukocytes negati ve Not Available In-Office Order Internal Use Only DO Not Attach Compendium DO Not Attach Compendium, Do Not Delete/merge, [id number] 01/14/2023 10:58:30 01/15/2001/14/2023 urina lysis , dipst ick cath specimen negati ve yes or no Not Available In-Office Order Internal Use Only DO Not Attach Compendium DO Not Attach Compendium, Do Not Delete/merge, [id number] 01/14/2023 10:58:30 07/07/20 19 07/07/2019 US, salin e infus ed uteru s, w/ color flow No observ ation record ed. Not Available 2018 09:55:07 07/07/2007/07/2019 US, trans vagin al No observ ation record ed. BARCODE [facility] [address] [address], [place], [address], 07/07/2019 17:09:33 Result Notes None recorded. Problems Name Problem SNOMED Code Status Onset Date Resolution Date Notes Provider Name and Address Organization Details Recorded Time Neck pain 87527724 Active 06/16/20 19 Mandie Ding MSN, [facility] [address] [address], [place], [address] , [place] - [facility] 06/16/2019 16:55:00 Notes:hormone problems Problem Notes None recorded. Procedures Surgical History Date Name Laterality Status Provider Name and Address Organization Details Recorded Time 9 Saline Infusion Sonogram (SIS) completed Mandie Ding MSN, [facility] [address] [address], [place], [address], [place] - [facility] 07/07/2019 14:36:39 4 Arthrd ant ntrbd min dsc crv completed Anupama COLON [facility] 06/16/2019 16:26:16 Imaging Results None recorded. Procedure Notes None recorded. Medical Equipment None Reported. Allergies No known drug allergies Medications Name Sig Start Date Stop Date Status Note LastModified by Organization Details LastModified Time tretinoin 0.1 % topical cream 08/22 completed Not Available Not Available Not Available tretinoin 0.01 % topical gel active Not Available Not Available Not Available azithromyci n 250 mg tablet TAKE 2 TABLETS BY MOUTH FOR 1 DAY THEN TAKE 1 TABLET BY MOUTH DAILY FOR 4 DAYS active Not Available Not Available No t Available ibuprofen 800 mg tablet 08/22 completed Not Available Not Available Not Available chlorzoxazo ne 500 mg tablet 08/22 completed Not Available Not Available Not Available sumatriptan 100 mg tablet 08/22 completed Not Available Not Available Not Available minocycline 100 mg capsule TAKE 1 CAPSULE BY MOUTH DAILY active Not Available Not Available No t Available meloxicam 15 mg tablet TAKE 1 TABLET BY MOUTH DAILY active Not Available Not Available No t Available prednisone 20 mg tablet active Not Available Not Available Not Available amitriptyli ne 25 mg tablet 08/22 completed Not Available Not Available Not Available estradiol 1 mg tablet TAKE 1 TABLET DAILY DIRECTED 01/14 completed Not Available Not Available Not Available clindamycin phosphate 1 % topical swab APPLY EXTERNALL Y TO THE AFFECTED AREA TWICE DAILY active Not Available Not Available No t Available albuterol sulfate HFA 90 mcg/actuati on aerosol inhaler INHALE 1 TO 2 PUFFS BY MOUTH EVERY 4 TO 6 HOURS NEEDED active Not Available Not Available No t Available cefdinir 300 mg capsule TAKE 1 CAPSULE BY MOUTH TWICE DAILY 08/22 completed Not Available Not Available Not Available fluticasone propionate 50 mcg/actuati on nasal spray,suspe nsion SHAKE LIQUID AND USE 2 SPRAYS IN EACH NOSTRIL DAILY active Not Available Not Available No t Available diazepam 5 mg tablet TAKE 1 TABLET BY MOUTH THREE TIMES DAILY NEEDED FOR ANXIETY active Not Available Not Available No t Available progesteron e micronized 100 mg capsule TAKE 1 CAPSULE DAILY DIRECTED 01/14 completed Not Available Not Available Not Available tretinoin microsphere s 0.1 % topical gel APPLY TOPICALLY TO THE AFFECTED AREA DAILY active Not Available Not Available No t Available clindamycin phosphate 1 % topical solution active Not Available Not Available Not Available minocycline 100 mg tablet 01/14 completed Not Available Not Available Not Available ciprofloxac in 0.3 %-dexametha sone 0.1 % ear drops,suspe nsion SHAKE LIQUID AND INSTILL 4 DROPPERFU L TO AFFECTED EAR TWICE DAILY active Not Available Not Available No t Available bupropion HCl XL 150 mg 24 hr tablet, extended release 08/22 completed Not Available Not Available Not Available duloxetine 20 mg capsule,del ayed release TAKE 1 CAPSULE BY MOUTH TWICE DAILY active Not Available Not Available No t Available Zyrtec 10 mg capsule Take by oral route. 01/14 completed Not Available Not Available Not Available Vitals Date Recorded Body height Body mass index (BMI) Body weight Systolic And Diastolic Provider Name and Address Organization Details Last Updated DateTime 01/14/2023 157.48 cm 27.3 kg/m2 51353.26 g 130/72 mm[Hg] Anupama COLON [facility] 01/14/2023 11:05:39 Date Recorded Body weight Systolic And Diastolic Provider Name and Address Organization Details Last Updated DateTime 06/16/2019 48691.56 g 138/82 mm[Hg] Anupama COLON [facility] 06/16/2019 16:17:13 Date Recorded Body weight Body mass index (BMI) Body height Systolic And Diastolic Provider Name and Address Organization Details Last Updated DateTime 07/07/2019 62296.56 g 24.9 kg/m2 157.48 cm 140/90 mm[Hg] Anupama Herrera [facility] 07/07/2019 14:20:42 Date Recorded Body height Body mass index (BMI) Body weight Systolic And Diastolic Provider Name and Address Organization Details Last Updated DateTime 08/22/2021 157.48 cm 27.4 kg/m2 73010.86 g 126/70 mm[Hg] Jonna Yepez [place] [facility] 08/22/2021 13:57:32 Social History Question Answer Notes LastModified by Organizat ion Details LastModified Time Tobacco Smoking Status Current Every Day Smoker ISAIAH Booker [facility] 01/14/2023 11:09:56 What Is Your Level Of Caffeine Consumption? Moderate [email or web address] Information not available 08/22/2021 In The 14 Days Before Symptom Onset, Have You Had Close Contact With A Laboratory-confirm ed COVID-19 While That Case Was Ill? No [email or web address] Information n ot available 01/14/2023 In The 14 Days Before Symptom Onset, Have You Had Close Contact With A Person Who Is Under Investigation For COVID-19 While That Person Was Ill? No [email or web address] Information not available 01/14/2023 Have You Been To An Area Known To Be High Risk For COVID-19? Yes [email or web address] Information not available 01/14/2023 What Was The Date Of Your Most Recent Tobacco Screening? 09/29/1997 [email or web address] Information not available 06/16/2019 How Many Children Do You Have? 2 [email or web address] Information not available 08/22/2021 What Is Your Relationship Status? [email or web address] Information not available 08/22/2021 Are You Sexually Active? Yes [email or web address] Information not available 08/22/2021 How Much Tobacco Do You Smoke? 1 PPW [email or web address] Information not available 01/14/2023 How Many Years Have You Smoked Tobacco? 6 [email or web address] Information not available 01/14/2023 Sex: Female Functional Status Question Answer Note LastModified by Organizat ion Details LastModified Time Do you use any illicit or recreational drugs? No Information not available 08/22/2021 Do you or have you ever used any other forms of tobacco or nicotine? No [email or web address] Information not available 01/14/2023 What is your level of alcohol consumption? None [email or web address] Information not available 08/22/2021 Do you or have you ever used smokeless tobacco? Never used smokeless tobacco [email or web address] Information not available 06/16/2019 Are you currently employed? No Information not available 08/22/2021 Do you or have you ever used e-cigarettes or vape? Never used electronic cigarettes [email or web address] Information not available 06/16/2019 What is your exercise level? Occasional [email or web address] Information not available 01/14/2023 Mental Status None recorded. Family History Relationship Description Onset Age of this Age Resolved Age Notes LastModified by Organization Details LastModified Time Mother Diabetes mellitus [email or web address] Not available 06/16 16:23:47 Mother Hypertensive disorder [email or web address] Not available 06/16 16:24:15 Paternal Grandmother Diabetes mellitus [email or web address] Not available 06/16 16:23:47 Father Hypertensive disorder [email or web address] Not available 06/16 16:24:15 Medical History Condition Response Breast Cancer N Endometriosis N Ovarian cancer N Diabetes N Blood Clots/DVT N Influenza Vaccine N Hyperlipidemia N Thyroid disease N Heart Disease N Hypertension N Gynecological History Statement/Question Response Prior colonoscopy date N Current Control Method Tubal Ligat ion Last Biopsy Date No HX Prior pap date 08/22/2021 Date of LMP with wiping 3 Prior Mammogram date 2016 Prior DXA date No HX Obstetrics History GPAL:G 2 P 2 0 0 1 Type Value Multiple Births 0 Full Term 2 Induced 0 Spontaneous 0 Premature 0 Living 1 Ectopics 0 Total 2 Past Encounters Encounter ID Performer Location Encounter Start Date Encounter Closed Date Diagnosis/Indication Diagnosis SNOMED-CT Code Diagnosis ICD10 Code Diagnosis IMO Codes Diagnosis Note [id number] Mandie SHETTY, [facility] [address], [address] [place] [address] 06/16/2019 15:37:38 06/20/2019 13:57:33 Gynecologic examination 58268215 Z01.411 *Schedule Noncyclic TVUS/possi ble SIS/EMB due to pelvic pain, R>L Check benefits Suspect pelvic floor dysfunctio n secondary to low back pain/bulgi ng disc in low back Neg upt today /Await cultures Start Aleve 2 po Q 12 hours, no heavy lifting, 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) Discussed possible PT for pelvic floor dysfunctio n and importance of treating /followup with back specialist , trial of ocp's may help, but pain does not appear to be related to cycles, although pt does not bleed, due to abalation Obtain MRI report and records from workup at [facility] last year, was supposed to have TVUS with them, but stated They never called her to schedule it Pain in pelvis 77139079 R10.2 Low back pain 967682410 M54.5 [id number] Mandie SHETTY, [facility] [address], [address] [place] [address] 07/07/2019 13:20:14 07/13/2019 13:40:13 Pain in pelvis 78824928 R10.2 *See procedure documentat ion TVUs post ablation, SIS cavity distends poorly, possible leiomyoma, though not discreet in uterine posterior /fundal, ET= 1.83 mm, simple avascular right ovarian cyst Plan:Sangita carter TVUs in 3 months- recheck right ovarian cyst, fundal shadowing ? fibroidFol low up with Neurologis t for management of back painIf pelvic floor pain persists post ( probable back surgery and PT post op), will send for pelvi floor ptNotify clinic if increased bleeding or pain before next recheck Chronic back pain 766136 002 M54.5 [id number] Fide Willard APRN, [facility] [address], [address] [place] [address] 08/22/2021 13:47:47 08/27/2021 10:43:00 Gynecologic examination 24265865 Z01.419 *yearly exam with papnormal examhx of a uterine ablation - concerns she may have early menopause (mom stopped having cycles around her age)screen ing labs today + vit dwill also check fsh/e2 to check menopausal status, patient requests testostero ne levelswill schedule a mammogram soon (schedulin g info given for Aparicio)Evan belcher 3 yr old grandchild with patient todayf/u one year Laboratory test 08226241 Z13.220 Z13.228 Z13.29 Z13.0 Z01.419 Endocrine/ metabolic screening 815712186 Z13.228 [id number] Fide Willard APRN, [facility] [address], [address] [place] [address] 01/14/2023 10:47:22 01/15/2023 07:49:30 Dysuria 17253121 R30.0 *urine dip negative Hyperlipid emia screening 626068565 Z13.220 Laboratory test 46203312 Z13.220 Z13.228 Z13.29 Z13.0 Z01.419 Menopausal and postmenopausal disorders 815454043 N95.9 Gynecologi c examination 02971648 Z01.419 *yearly exam with papnormal examhx of a uterine ablationha s experience d bleeding (only notices in toilet when urinating, but only intermitte ntly)will check fsh/e2 todaymonit or bleeding - if it persists we will need a tv pelvic us - possible sis/embscr eening labs todaywill schedule a mammogram soon (schedulin g info given)f/u one year Health Concerns Section Related Observation LastModified by Organization Detai ls LastModified Time None Recorded Concern Status LastModified by Organization Details LastModified Time None Recorded Advance Directives Directive None Recorded Payers Insurance Date Sequence Insurance Name Policy Number Policy Hernández Covered Member ID Hernández Member ID Guarantor Name 05/05/2024 1 [id number] Suresh Marquez [id number] Lizeth Marquez Notes Date Note Type Note Provider Name and Address Organization Details Recorded Time 9 text/html 1 & 1/2 years ago , painful intercourse, getting much worse latelyDeep inside and to right, with deep penetrationsometimes bleeds after ic, light Occasional constipation, no problems with bladder, had chronic uti's in past, not currently a problem 2-Vaginal deliveries with babies- 8+ lbs largest,no trauma or complications Mirena without problems, then BTL 2006, Ablation 2010 for heavy periods, no excessive pain with cycles, no bleeding since ablation except occasional post coital spotting Dx degenerative bone Dz. onset 3-4 months ago, has low back pain, laying down helps, has bone spurs and bulging disc in lumbar area, worse on right No vaginal symptoms now Mammogram for dense breast tissue right breast axillary area Mandie Ding MSN, CNP-BC [address], [address], [place], [address], [place] - [facility] 06/16/2019 19:20:27 9 text/html ROS as noted in the HPI 1 & 1/2 years ago , painful intercourse, getting much worse lately Deep inside and to right, with deep penetration sometimes bleeds after ic, light Occasional constipation, no problems with bladder, had chronic uti's in past, not currently a problem 2-Vaginal deliveries with babies- 8+ lbs largest,no trauma or complications Mirena without problems, then BTL 2006, Ablation 2010 for heavy periods, no excessive pain with cycles, no bleeding since ablation except occasional post coital spotting Dx degenerative bone Dz. onset 3-4 months ago, has low back pain, laying down helps, has bone spurs and bulging disc in lumbar area, worse on right No vaginal symptoms now Mammogram for dense breast tissue right breast axillary area Mandie Ding MSN, WHCNP-BC [address], [address] [facility], [place], [address], [place] [facility] 07/07/2019 14:36:59 1 text/html Lizeth is here for her annual exam.Uterine ablation in 2010 for heavy bleeding.BTL for control.Amenorrheic.does c/o increased fatigue, has lost a lot of hair, nipple are sensitive, loss of sex driveonset of all symptoms 3 months agoFamily hx of premature menopauseno vasomotor symptoms, trouble falling asleepno changes, no increased caffeinehas also gained weight Fide Willard APRN, [address], [place] [address], [place], [address], [place] [facility] 08/29/2021 08:55:04 3 text/html Lizeth is here for her annual exam.Notices blood with wiping - onset x 3 wks, occurs daily - intermittent.No bleeding other than the last 3 wks since uterine ablation 2010.Does have burning/itching post coital. Will last for days post intercourse (approx 3 days, symptoms will resolve until intercourse again).Bleeding is not related to intercourse.No dryness with intercourse.Does c/o fatigue/weight gain.Went off estrogen and progesterone 09/2021 - she was not sure whether meds helped with symptoms. Prescribed for fatigue/weight gain.Son 09/2021, suicide. Fide Willard APRN, [address], [place] [address], [place], [address], [place] - [facility] 01/20/2023 10:49:30 OBGyn Episode Ob Episode Information Episode Created Date Number of Fetuses Patient Bloodtype Patient rh Status Prepregnancy Weight lbs Domestic Partner Domestic Partner Phone Father Name Prune Washer Status 06/16/20 19 1 CLOSED Fetus Data First Name Last Name Admitted to NICU Weight (g) Sex Living Outcome Pediatric Complications Fetus ID Race Codes Race Delivery Type Full Term 1363 Anurag Calculation Initial Anurag Date Initial Exam Date Initial Exam Provider Initial Ultrasound Date Last Menstrual Period Date Ultra Sound Weeks Gestation 0 Eighteen To Twenty Week Anurag Update Ultra Sound Date Fundal Height At Umbil Quickening Date Ultra Sound Latest Weeks Gestation Final Anurag Confirmed By Final Anurag Confirmed Date Final Anurag Date Ultra Sound Latest Days Gestation 0 0 Menstrual History Last Menstrual Date Menses Monthly On Bcp Conception Prior Menses Frequency Hcg Plus Date Menarche Onset Age Delivery Information Delivery Date Delivery Type Labor Anesthesia Weeks Gestation Incision Type Labor Labor Length Hrs Delivered By Post Complications Tubal Sterilization Discharge Date Comments 3 None 40 Discharge Information Feeding Method Contraceptive Method Maternal HG B and HCT Levels Ob Episode Information Episode Created Date Number of Fetuses Patient Bloodtype Patient rh Status Prepregnancy Weight lbs Domestic Partner Domestic Partner Phone Father Name Prune Washer Status 06/16/20 19 1 CLOSED Fetus Data First Name Last Name Admitted to NICU Weight (g) Sex Living Outcome Pediatric Complications Fetus ID Race Codes Race Delivery Type Full Term 1362 Anurag Calculation Initial Anurag Date Initial Exam Date Initial Exam Provider Initial Ultrasound Date Last Menstrual Period Date Ultra Sound Weeks Gestation 0 Eighteen To Twenty Week Anurag Update Ultra Sound Date Fundal Height At Umbil Quickening Date Ultra Sound Latest Weeks Gestation Final Anurag Confirmed By Final Anurag Confirmed Date Final Anurag Date Ultra Sound Latest Days Gestation 0 0 Menstrual History Last Menstrual Date Menses Monthly On Bcp Conception Prior Menses Frequency Hcg Plus Date Menarche Onset Age Delivery Information Delivery Date Delivery Type Labor Anesthesia Weeks Gestation Incision Type Labor Labor Length Hrs Delivered By Post Complications Tubal Sterilization Discharge Date Comments 9 None 40 Discharge Information Feeding Method Contraceptive Method Maternal HG B and HCT Levels
--- OUTSIDE RECORDS SUMMARY | 2025-09-11 15:01 | XMS_ITS | Clinical Summary ---
Author Organization [facility] Address [address] [place] [id number] Care Team Providers Care [employer] Name Role Phone Non-Staff, Physician Primary Care Provider Unava ilable Allergies No known active allergies Medications cetirizine (ZyrTEC) 10 mg tablet Take 10 mg by mouth daily. Active naltrexone-buPRO Pion (CONTRAVE) 8-90 mg Tablet Sustained Release Take by mouth. 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
[2025-09-11 15:13] LABS: Hematocrit 42.5 % (36-47); Hemoglobin 14.40 g/dL (11.27-16.99); Mean Corpuscular HGB Conc 33.9 g/dL (30-55); Mean Corpuscular Hemoglobin 32.4 pg (27-33); Mean Corpuscular Volume 95.5 fl (85-98); Nucleated Red Blood Cells % 0 %; Platelet Count 324 10^3/cmm (157-399); Red Blood Count 4.45 10^6/uL (3.85-5.65); White Blood Count 10.12 10^3/uL (3.29-11.43)
[2025-09-11] MEDS: diphenhydrAMINE 50 mg/mL SDV 1mL IVP (15:16)
[2025-09-11] MEDS: metoclopramide 5 mg/mL SDV 2 mL 10 MG IVP (15:22)
[2025-09-11 15:33] VITALS: BP 125/87; PULSE 67; RESP 18; O2SAT 100
[2025-09-11 15:36] LABS: Alanine Aminotransferase 11 U/L (0-33); Albumin Level 5.3 g/dL (3.5-5.2); Alkaline Phosphatase 29 U/L (35-105); Blood Urea Nitrogen 8 mg/dL (6-20); Calcium 9.8 mg/dL (8.5-10.5); Carbon Dioxide 25 mmol/L (22-29); Chloride 101 mmol/L (98-107); Globulin 2.0 g/dL (1.3-4.6); Glucose 87 mg/dL (65-115); Lipase 40 U/L (13-60); Osmolality Calculated 288 mOsm/kg (285-295); Sodium 140 mmol/L (136-145); Total Protein 7.3 g/dL (6.6-8.7); Troponin(5th) Baseline < 6 ng/L (0-10)
[2025-09-11 15:38] LABS: Anion Gap 17.7 (5-19); Aspartate Amino Transferase 17 U/L (0-32); Potassium 3.7 mmol/L (3.5-5.1)
[2025-09-11 15:57] VITALS: BP 116/69; PULSE 64; O2SAT 98
== END 2025-09-11 15:58 | disposition home or self-care (01) ==
PROVIDERS: Emergency Provider Emergency Medicine; PCP Family Medicine
DX: R07.89 Other chest pain (principal); R51.9 Headache, unspecified; Z72.0 Tobacco use
CPT/HCPCS: 71045; 80053; 83690; 84484; 85025; 93005; 96374; 96375; 99285; J1200; J1885; J2765